=== PATIENT | female | born 1980 | race Caucasian/White ===

== ENCOUNTER → 2016-11-12 | Outpatient (CLI) | payer OTHER ==
[2016-11-12 10:35] LABS: ABSOLUTE EOSINOPHILS # (AUTO) 0.5 10^3/uL (0.0-0.6); ABSOLUTE LYMPHOCYTES (AUTO) 2.3 10^3/uL (0.5-4.7); ABSOLUTE MONOCYTES (AUTO) 0.8 10^3/uL (0.1-1.4); BASOPHILS % (AUTO) 0.4 % (0-2); HEMATOCRIT 43.5 % (36.0-47.0); HEMOGLOBIN 14.4 g/dL (12.0-15.5); HGB HCT DIFFERENCE -0.3; LYMPHOCYTES % (AUTO) 20.2 % (13-45); MEAN CORPUSCULAR HEMOGLOBIN 30.1 pg (27.0-33.4); MEAN CORPUSCULAR VOLUME 91 fl (80-97); RED BLOOD COUNT 4.78 10^6/uL (3.72-5.28); RED CELL DISTRIBUTION WIDTH 13.2 % (11.5-14.0); SEGMENTED NEUTROPHILS % (AUTO) 68.4 % (42-78); WHITE BLOOD COUNT 11.6 10^3/uL (4.0-10.5)
[2016-11-12 10:55] LABS: ALANINE AMINOTRANSFERASE 36 U/L (9-52); ALBUMIN 5.1 g/dL (3.5-5.0); ALKALINE PHOSPHATASE 94 U/L (38-126); ANION GAP 13 (5-19); ASPARTATE AMINO TRANSFERASE 28 U/L (14-36); BILIRUBIN,DIRECT 0.4 mg/dL (0.0-0.4); BILIRUBIN,TOTAL 1.8 mg/dL (0.2-1.3); BLOOD UREA NITROGEN 10 mg/dL (7-20); CALCIUM 10.3 mg/dL (8.4-10.2); CARBON DIOXIDE 28 mmol/L (22-30); CHLORIDE 104 mmol/L (98-107); CREATININE RESULT 0.72 mg/dL (0.52-1.25); GLUCOSE 98 mg/dL (75-110); POTASSIUM 4.4 mmol/L (3.6-5.0); SODIUM 145.2 mmol/L (137-145); TOTAL PROTEIN 8.2 g/dL (6.3-8.2)
== END ==
LOC: RAD 10:34
PROVIDERS: ATTEND Physician Assistant
DX: R10.84 Generalized abdominal pain (principal)
CPT/HCPCS: 36415; 74177; 80053; 83690; 85025

== ENCOUNTER → 2019-06-22 | Outpatient (CLI) | payer BC ==
--- NOTE | 2019-06-22 16:49 | RADIOLOGY REPORT (SQ) ---
EXAM DESCRIPTION: FOOT LEFT COMPLETE COMPLETED DATE/TIME: 06/22/2019 4:39 pm REASON FOR STUDY: INJURY TO LEFT FOOT S99.922A UNSPECIFIED INJURY OF LEFT FOOT, INITIAL ENCOUNTER COMPARISON: None. NUMBER OF VIEWS: Three views. TECHNIQUE: AP, lateral and oblique radiographic images acquired of the left foot. LIMITATIONS: None. FINDINGS: MINERALIZATION: Normal. BONES: No acute fracture or dislocation. No worrisome bone lesions. JOINTS: No effusions. SOFT TISSUES: No soft tissue swelling. No foreign body. OTHER: No other significant finding. IMPRESSION: NEGATIVE STUDY OF THE LEFT FOOT. NO RADIOGRAPHIC EVIDENCE OF ACUTE INJURY. TECHNICAL DOCUMENTATION: JOB ID: [id number] [employer]- All Rights Reserved Reading location - IP/workstation name: [email or web address]
== END ==
LOC: OD 16:24
PROVIDERS: ATTEND Family Medicine
DX: S99.922A Unspecified injury of left foot, initial encounter (principal); X58.XXXA Exposure to other specified factors, initial encounter